=== PATIENT | female | born 1935 | race Caucasian/White ===

== ENCOUNTER 2017-11-09 11:57 | Day surgery (SDC) | payer MEDICARE ==
[~2017-11-09 11:57] MED LIST: ACETAMINOPHEN 1,000 MG/100 ML BTL IV ONE; CEFAZOLIN 2 Gram 2 GM/50 ML BAG IVPB ONE
[2017-11-09] MEDS ORDERED: SEVOFLURANE 250 ML INH ONE (11:58)
[2017-11-09] MEDS ORDERED: KETOROLAC 30 MG/ML VIAL IVP ONE (11:58)
[2017-11-09] MEDS ORDERED: PROPOFOL 10 MG/ML VIAL IV ONE (11:58)
[2017-11-09] MEDS ORDERED: ONDANSETRON HCL IV 4 MG/2 ML VIAL IVP ONE (11:58)
[2017-11-09] MEDS ORDERED: BUPIVACAINE 0.5% W/EPI MPF 30 ML VIAL IVP ONE (11:58)
[2017-11-09] MEDS ORDERED: LIDOCAINE 2% MDV (20MG/ML) 20ML VIAL IV ONE (11:58)
[2017-11-09 12:24] LABS: BASO % 0.4 % (0-6); EOS % 1.8 % (0-6); GRAN % 76.3 % (47-80); HEMATOCRIT 41.5 % (35.0-47.0); HEMOGLOBIN 13.5 gm/dl (11.6-16.0); LYMPH % 13.1 % (16-45); MEAN CORPUSCULAR HEMOGLOBIN 29.6 pg (27-33); MEAN CORPUSCULAR HGB CONC 32.5 g/dl (32-36); MEAN PLATELET VOLUME 10.7 fl (7.4-10.4); MONO % 8.4 % (0-9); PLATELET COUNT 330 K/uL (130-400); RED BLOOD COUNT 4.56 M/uL (3.80-5.40); RED CELL DISTRIBUTION WIDTH 13.7 % (11.5-14.5); WHITE BLOOD COUNT W/O DIFF 6.8 K/uL (4.2-12.2)
[2017-11-09 12:53] LABS: BLOOD UREA NITROGEN 17 mg/dL (8-23); CREATININE 0.7 mg/dL (0.5-0.9); EST GLOMERULAR FILTRATION RATE > 60 mL/min; GLUCOSE,RANDOM 100 mg/dL (74-109)
[2017-11-09] MEDS ORDERED: MORPHINE SULFATE 4 MG/ML VIAL ONE (15:27)
--- NOTE | 2017-11-12 13:48 | Operative Note ---
DATE: 11/09/2017. PREOPERATIVE DIAGNOSIS: INTERNAL DERANGEMENT OF THE LEFT KNEE. POSTOPERATIVE DIAGNOSES: 1. TEAR OF THE ANTERIOR AND LATERAL HORN OF THE LATERAL MENISCUS. 2. DIFFUSE SYNOVITIS OF THE LEFT KNEE. PROCEDURES: 1. Left knee arthroscopy with near-complete lateral meniscectomy. 2. Left knee arthroscopy with complete synovectomy. STAFF SURGEON: Avni Quick M.D. ANESTHESIA: General. PREPARATION: ChloraPrep. INDIVIDUAL CONSIDERATIONS: None. PROCEDURE: The patient was taken to the operating room and placed supine on the operating table. She had successful induction of a general anesthetic. Her left lower extremity was prepped and draped in the usual fashion. The patient had a superolateral inflow cannula placed. The skin had been infiltrated with 0.5% Marcaine with epinephrine prior. A large, clear effusion was drained, and the knee was inflated with normal saline. An inferomedial and an inferolateral portal were made in a similar fashion. The arthroscope was introduced through the inferolateral portal up into the pouch. The patellofemoral joint was basically normal, but she had diffuse synovitis in the pouch and both gutters. This was debrided with a shaver. Her medial compartment structures were well seen and were found to be normal including the medial articular cartilage and medial meniscus. In the lateral compartment, basically she had an unstable anterior and lateral horn tear of the lateral meniscus with multiple large, unstable flaps impinging into the notch. Basically the anterior and lateral horn were debrided out completely with basket forceps and a shaver. The articular cartilage looked good. In the notch, the cruciates were normal. The knee was then irrigated out with saline to remove floating debris. The portals were closed with lexy, and 20 mL of 0.5% Marcaine with epinephrine along with 80 mg of Depo Medrol and 4.0 mg of morphine and were injected into the knee. A sterile Bulkee compressive dressing was applied. The patient tolerated the procedures well. Needle and sponge counts were correct. Estimated blood loss was minimal. She was taken back to recovery in good condition. There were no complications. Job Number: [id number] MTDD
== END 2017-11-09 17:10 | disposition home or self-care (01) ==
LOC: SUR 11:57
PROVIDERS: ATTEND Orthopaedic Surgery
DX: M23.342 Other meniscus derangements, anterior horn of lateral meniscus, left knee (principal); M65.9 Synovitis and tenosynovitis, unspecified; I10 Essential (primary) hypertension; E78.00 Pure hypercholesterolemia, unspecified; K21.9 Gastro-esophageal reflux disease without esophagitis
CPT/HCPCS: 29881; 29876; 01400; 85025; 80048; J1885; J2405; J0690; J2270

== ENCOUNTER 2018-07-18 06:46 | Inpatient (IN) | payer MEDICARE ==
[~2018-07-18 06:46] MED LIST changes: -ACETAMINOPHEN 1,000 MG/100 ML BTL IV ONE; -CEFAZOLIN 2 Gram 2 GM/50 ML BAG IVPB ONE; +CELECOXIB 100 MG CAPSULE PO ONE; +FAMOTIDINE 20MG TABLET PO ONE; +MECLIZINE 25 MG TABLET PO ONE; +METOCLOPRAMIDE 10 MG TABLET PO ONE; +VANCOMYCIN 1GM/200ML PREMIX 1 GM/200 ML PIGGYBACK IVPB ONE
[2018-07-18] MEDS ORDERED: ROPIVACAINE HCL (NAROPIN) /PF 5MG/ML 20ML VIAL IV ONE (06:47)
[2018-07-18] MEDS ORDERED: SEVOFLURANE 250 ML INH ONE (06:47)
[2018-07-18] MEDS ORDERED: SUFENTANIL CITRATE 50 MCG/ML AMPUL IV ONE (06:47)
[2018-07-18] MEDS ORDERED: MIDAZOLAM HCL 2MG/2ML VIAL IV ONE (06:47)
[2018-07-18] MEDS ORDERED: TRANEXAMIC ACID 1,000 MG/10 ML ML IV ONE ×2 (06:47)
[2018-07-18] MEDS ORDERED: DEXAMETHASONE 4 MG/ML 1ML VIAL IVP ONE ×2 (06:47)
[2018-07-18] MEDS ORDERED: KETOROLAC 30 MG/ML VIAL IVP ONE (06:47)
[2018-07-18] MEDS ORDERED: KETAMINE HCL 100MG/1ML VIAL INJ ONE (06:47)
[2018-07-18] MEDS ORDERED: 0.9 % SODIUM CHLORIDE 10 ML VIAL IVP ONE (06:47)
[2018-07-18] MEDS ORDERED: PROPOFOL 10 MG/ML VIAL IV ONE (06:47)
[2018-07-18] MEDS ORDERED: ONDANSETRON HCL IV 4 MG/2 ML VIAL IVP ONE (06:47)
[2018-07-18] MEDS ORDERED: RINGERS SOLUTION,LACTATED 1,000 ML IV ONE ×4 (07:30→10:45)
[2018-07-18 07:55] LABS: ABO GROUP O; ANTIBODY SCREEN NEGATIVE (NEGATIVE); RH TYPE POSITIVE
[2018-07-18] MEDS ORDERED: BUPIVACAINE 0.5% W/EPI MPF 30 ML VIAL SQ ONE (09:50)
[2018-07-18] MEDS: CEFAZOLIN 2 Gram 2 GM/50 ML BAG IVPB SCH ×2 (09:51→17:51)
[2018-07-18] MEDS ORDERED: MAGNESIUM HYDROXIDE 30 ML UDC PO PRN (10:47)
[2018-07-18] MEDS ORDERED: TRAMADOL HCL 50 MG TABLET PO PRN ×2 (10:47)
[2018-07-18] MEDS ORDERED: ACETAMINOPHEN W/ CODEINE 300MG/60MG TABLET PO PRN ×2 (10:47)
[2018-07-18] MEDS ORDERED: HYDROMORPHONE HCL 2 MG/ML VIAL IM PRN (10:47)
[2018-07-18] MEDS ORDERED: NALOXONE 0.4 MG/1 ML VIAL IVP PRN (10:47)
[2018-07-18] MEDS ORDERED: DIPHENHYDRAMINE HCL 25 MG CAPSULE PO PRN (10:47)
[2018-07-18] MEDS ORDERED: KETOROLAC 30 MG/ML VIAL IVP PRN ×2 (10:47)
[2018-07-18] MEDS ORDERED: ZOLPIDEM TARTRATE 5 MG TABLET PO PRN (10:47)
[2018-07-18] MEDS ORDERED: AL HYDROX/MAG HYDROX 30ML UD PO PRN (10:47)
[2018-07-18] MEDS ORDERED: ACETAMINOPHEN 325 MG TAB PO PRN (10:47)
[2018-07-18] MEDS ORDERED: HYDROCODONE/APAP 10/325 TABLET PO PRN (10:47)
[2018-07-18] MEDS ORDERED: HYDROCODONE/APAP 5/325MG TABLET PO PRN ×2 (10:47)
[2018-07-18] MEDS ORDERED: BISACODYL 10 MG SUPP RC PRN (10:47)
[2018-07-18] MEDS: ONDANSETRON HCL IV 4 MG/2 ML VIAL IVP PRN ×2 (12:27→17:49)
[2018-07-18] MEDS: HYDROCODONE/APAP 10/325 TABLET PO PRN ×4 (13:18→23:47)
--- NOTE | 2018-07-18 15:34 | Rehab Evaluation ---
Patient Information - Patient Information Diagnosis: DJD Left Knee Ordered Treatment: PT Evaluate and Treat Status: Initial Evaluation Surgery: Yes (L TKA) Date of Surgery: 07/18/18 Past Medical/Surgical Hx: PAST MEDICAL/SURGICAL HISTORY Surgery to Affected Area? No Recent Surgery? Past Surgical History vLEFT KNEE SCOPE LTHA right knee scope CTR right right RTC back sx lumbar hyst appy PMH - Respiratory Hx Respiratory Disorders No PMH - Cardiovascular Hx Cardiovascular Disorders Yes Hx Hypertension Yes: on meds good control Exercise Tolerance Fair PMH - Neuro Hx Neurological Disorders No Hx Neuropathy DENIES PMH - GI Hx Gastrointestinal Disorders Yes Hx Gastroesophageal Reflux Yes: ON MEDS PMH - Hx Genitourinary Disorders No PMH - Endocrine Hx Endocrine Disorders Yes Hx Thyroid Disease Yes: on meds PMH - Musculoskeletal Hx Musculoskeletal Disorders Yes Hx Arthritis Yes Hx Osteoporosis Yes PMH - Psych Hx Psychiatric Problems No PMH - Hematology/Oncology Hx Hematology/Oncology No Disorders Premorbid Status: Detail (Patient reports that she has a cane, 4-wheeled walker, and 2-wheeled walker available. Patient is retired.) Social History: Detail (Patient lives alone in [address] home with 3 steps to enter bilateral hand rails. Patient reports that her bathroom has a tub/shower combination with grab bars available and hand-held shower. Patient reports that she has a shower bench available for showers. The toilet in the bathroom is elevated but does not have grab bars available. Patient reports that she plans on being discharged to inpatient rehab.) - Time With Patient Total Time Spent With Patient (Min): 30 Treatment Procedures: Detail (Initial evaluation; low complexity) Objective Data - Pain Pain Present: Yes (Patient reports pain to be 5/10. Nursing staff was notified and patient was given pain medication. Therapy returned an hour later for session and patient reported that her pain was about 2/10.) - Mental Status Patient Orientation: Oriented x3 - ROM Not within normal limits (Patient's range of motion of lower extremities was assessed functionally with bed mobility, sit to stand transfers, and ambulation. Patient's left lower extremity is lacking range of motion due to post-surgical status, as expected. All other lower extremity range of motion is within functional limits.) - Strength/Tone Not within normal limits (Patient's strength was assessed functionally with bed mobility, sit to stand transfers, and ambulation. Patient's left lower extremity was not assessed with manual muscle testing but is likely weaker due to post- surgical status. All other lower extremity strength was within functional limits.) - Coordination Appears within normal limits for therapeutic activities - Bed Mobility Independent (Patient completed supine to sitting R EOB transfer independently with supervision assistance x1.) - Transfers Needs Assist (Patient completed sit to stand transfer from R EOB with 2-wheeled walker for support and supervision assistance. During ambulation, patient required a rest break and sat down in a chair with bilateral arm support. Patient required minimal assistance x1 with 2-wheeled walker for support for sit to stand transfer from chair with 2 attempts prior to completion of transfer. Patient then was brought to the restroom and completed sit to stand transfer from commode with bilateral arm support on railing and 2-wheeled walker with supervision assistance x1.) - Gait Detail (Patient ambulated total distance of 66 feet with 2-wheeled walker and CGAx1 for safety. Patient did require rest break at approximately 33 feet due to feeling "wobbly in her brain." Patient's gait pattern was antalgic with decreased heel strike and stride length in left lower extremity.) Therapy Assessment - Therapy Assessment Detail (Patient requires supervision assistance for bed mobility and sit to stand transfers from the edge of the bed. Patient did ambulate a total distance of 66 feet with 2-wheeled walker for support and CGAx1 but required a rest break due to feeling lightheaded. This lightheadedness may be due to post-surgical effects and is expected to subside by next therapy session. Patient would benefit from follow up therapy session to address stair training and post- surgical exercises.) Problem List - Problem List Physical Therapy Problem List: Detail (1. Decreased strength in left lower extremity due to post-surgical status 2. Decreased range of motion in left lower extremity due to post-surgical status. 3. Altered gait pattern due to compensations over time.) Goals - Goals Physical Therapy Goals: 1. Patient will ascend/descend 3 stairs with one railing and folded 2-wheeled walker for bilateral hand support with CGAx1 prior to discharge. 2. Patient will be independent with home exercises. Prognosis - Prognosis Good (With follow up session addressing additional needs/goals, patient is expected to continue progress in transition home.) Plan - Plan Physical Therapy Plan: Patient will receive 1-2 visits of physical therapy to address stair training and home exercise program.
--- NOTE | 2018-07-18 15:43 | Rehab Evaluation ---
Patient Information - Patient Information Diagnosis: DJD Left Knee Ordered Treatment: OT Evaluate and Treat Status: Initial Evaluation Surgery: Yes (L TKA) Date of Surgery: 07/18/18 Past Medical/Surgical Hx: PAST MEDICAL/SURGICAL HISTORY Surgery to Affected Area? No Recent Surgery? Past Surgical History vLEFT KNEE SCOPE LTHA right knee scope CTR right right RTC back sx lumbar hyst appy PMH - Respiratory Hx Respiratory Disorders No PMH - Cardiovascular Hx Cardiovascular Disorders Yes Hx Hypertension Yes: on meds good control Exercise Tolerance Fair PMH - Neuro Hx Neurological Disorders No Hx Neuropathy DENIES PMH - GI Hx Gastrointestinal Disorders Yes Hx Gastroesophageal Reflux Yes: ON MEDS PMH - Hx Genitourinary Disorders No PMH - Endocrine Hx Endocrine Disorders Yes Hx Thyroid Disease Yes: on meds PMH - Musculoskeletal Hx Musculoskeletal Disorders Yes Hx Arthritis Yes Hx Osteoporosis Yes PMH - Psych Hx Psychiatric Problems No PMH - Hematology/Oncology Hx Hematology/Oncology No Disorders Premorbid Status: Detail (Prior to Sx, Pt was independent with all ADLs and functional TFs, using a cane recently. She lives alone in a one level home with 3 FILIBERTO and wide bilateral HRs. The bathroom is equipped with a tub/shower, shower stool, GBs, and a hand-held shower, along with a raised toilet seat without GBs. Pt hopes to go to rehab at [facility].) Precautions: [place], Fall, Other (FWB LLE) - Time With Patient Total Time Spent With Patient (Min): 28 (1 eval) Treatment Procedures: Detail (OT eval: low complexity) Subjective Information - Subjective Information Per Patient (Ok to see per DANIA Vivar. Pt agreeable to OT eval.) Objective Data - Pain Pain Present: No Pain Scale Used: Numeric (1 - 10) (0/10) - Mental Status Patient Orientation: Oriented x3 - Visual Perception Appears within normal limits for therapeutic activities - ROM Within normal limits, Not within normal limits (L UE WNL, R UE WNL except shoulder - previous rotator cuff Sx and "locks" at ~45* full PROM) - Strength/Tone Within normal limits, Not within normal limits (decreased strength R shoulder d/t 10 yr old injury) - Coordination Appears within normal limits for therapeutic activities - Bed Mobility Independent (not assessed - Pt in chair upon arrival) - Transfers Independent - Balance Balance Sitting: Good Balance Standing: Good (goold balance during standing pant mgmt) - Sensation Intact - Gait Detail (Fxl mobility within bedroom with FWW and supervision progressing to MOD I - initial verbal instruction for safe FWW use and hand placement during sit- stands, Pt demos good follow through and safety awareness end of session.) - ADL's/IADL's Detail (Pt washes up standing sink-side - face, upper and lower body with good balance. OT educates Pt on adaptive technique for LB dressing - Pt demos good follow through and reports independence with sock aide for L sock at home with her own device. OT educates Pt on kitchen and bathroom safety, Pt verbalizes understanding.) Therapy Assessment - Therapy Assessment Detail (Pt demos good independence and safety with ADLs and functional TFs. From OT and Pt perspective Pt appears safe for home DC pending PT eval - Pt lives in 1-story home with 3 FILIBERTO.) Patient Education - Patient Education Teaching Topic: Equipment Use, Other (adaptive technique for dressing, TFs, bathroom/kitchen safety.) Problem List - Problem List Occupational Therapy Problem List: Detail (No further IP OT needs identified.) Goals - Goals Occupational Therapy Goals: No further IP OT needs/goals identified. Prognosis - Prognosis Good Plan - Plan Occupational Therapy Plan: No further IP OT needs identified. DC OT services. Pt appears safe for home DC, Pt agreeable, see PT notes for further recs. Thank you for this referral.
[2018-07-18] MEDS: POTASSIUM CHLORIDE/D5-0.9%NACL 20 MEQ/1,000 ML BAG IV SCH ×2 (17:53→19:59)
[2018-07-18] MEDS: RIVAROXABAN 10 MG TABLET PO SCH (19:58)
[2018-07-18] MEDS: DOCUSATE SODIUM 100 MG CAPSULE PO SCH (21:30)
[2018-07-18] MEDS: ATENOLOL 50 MG TABLET PO SCH (21:30)
[2018-07-18] MEDS: AMLODIPINE BESYLATE 5MG TAB PO SCH (21:30)
[2018-07-18] MEDS: SIMVASTATIN 20 MG TABLET PO SCH (21:30)
[2018-07-19] MEDS: CEFAZOLIN 2 Gram 2 GM/50 ML BAG IVPB SCH ×4 (00:29→09:05)
[2018-07-19] MEDS: POTASSIUM CHLORIDE/D5-0.9%NACL 20 MEQ/1,000 ML BAG IV SCH ×3 (04:56→19:22)
[2018-07-19] MEDS: HYDROCODONE/APAP 10/325 TABLET PO PRN ×3 (05:02→17:51)
[2018-07-19] MEDS: PANTOPRAZOLE SODIUM 40 MG TABLET PO SCH (06:01)
[2018-07-19] MEDS: LEVOTHYROXINE SODIUM 50 MCG TABLET PO SCH (06:02)
--- NOTE | 2018-07-19 06:10 | Operative Note ---
DATE OF SURGERY: 07/18/2018 PREOPERATIVE DIAGNOSIS: End-stage arthrosis of the left knee. POSTOPERATIVE DIAGNOSIS: End-stage arthrosis of the left knee. OPERATION: Cemented left total knee arthroplasty using [employer] Sarai II components with a size 4 cobalt chrome femur, a size 4 stemmed tibia baseplate, a 9 mm lipped tibial insert, and a 35 mm all plastic patella. STAFF SURGEON: Avni Quick MD ANESTHESIA: Spinal. PREPARATION: Chloraprep. INDIVIDUAL CONSIDERATIONS: None. PROCEDURE: The patient was taken to the operating room, placed supine on the operating room table. He had a successful induction of a spinal anesthetic. The left lower extremity was prepped and draped in the usual fashion. The patient had a midline approach to the knee. The limb was elevated and tourniquet was inflated to 250 mmHg prior. Sharp dissection carried down through skin and subcutaneous tissue. Small veins were coagulated with a Bovie. A medial arthrotomy was performed. The patella was everted and the knee was flexed. The patient had exposed bone in both medial and lateral compartments. Fat pad was resected, ACL was sacrificed, and provisional anterior meniscectomies were performed. The capsule was released from the medial proximal tibia. The initial femoral charter pilot hole was then made freehand. The intramedullary femoral cutting jig was placed. It was cut in 7.0 degrees of valgus and adjusted for rotation and secured with pins for a 10 mm resection. The initial transverse cut was then made. The skin guide was placed in the anterior and posterior charter pilot holes. It was found that a size 4 would be appropriate. The anterior and posterior cuts followed by chamfer cuts were made. Osteophytes removed, and a size 4 trial was placed and found to fit well. The tibia was brought forward, and the remainder of the meniscal remnants removed with a Bovie. The extraarticular tibial cutting jig was placed. It was cut in neutral with a 3-degree AP slope. Care was taken to adjust for rotation and flexion using the extraarticular alignment guide and bony landmarks. It was found that a size 4 would be appropriate. It was adjusted for rotation and secured with pins. With a 9 mm trial and femoral trial, there was excellent motion and stability, ligamentous balance, rotation alignment were thought to be normal. The femoral charter pilot holes were impacted and the femoral tri-flange keel stamp was impacted, and these trial components were removed. The patient had a relatively thick patella, and roughly 9 mm of bone was removed. I could easily fit a 35 patella, and the 3 charter pilot holes were drilled. Thorough irrigation with pulsatile Betadine and saline. I then took the tourniquet down briefly to get bleeders posteriorly and then placed it back up again. Again thorough irrigation to remove any visual or palpable debris. Bony surfaces were then dried. A size 4 stemmed tibia baseplate was cemented into place followed by impaction of the 9 mm lipped tibial insert followed by cementing in the size 4 cobalt chrome femur followed by cementing in the 35 mm all plastic patella. The implant surfaces were compressed, excess cement was removed. After the cement had set, there was excellent motion and stability, ligamentous balance, rotation alignment, and patellofemoral tracking were normal. No lateral release was required. Again after irrigation I infiltrated the skin and subcutaneous tissue with 30 mL of 0.5% Marcaine with epinephrine. Tourniquet was let down. Hemostasis was obtained with a Bovie. The capsule was then closed with a running #2 quill, subcu was closed in layers with running 0 quill, skin was closed with lexy. The patient did receive 1 g of tranexamic acid preoperatively IV. I mixed 1 g of tranexamic acid with 30 mL of saline and it was injected into the knee through a sterile 18-gauge needle, and a sterile bulky compressive dressing was applied. The patient tolerated the procedure well. Needle and sponge counts were correct. Estimated blood loss was minimal, and she was taken back to recovery in good condition. There were no complications. ROBIN
[2018-07-19 06:56] LABS: HEMATOCRIT 30.6 % (35.0-47.0); HEMOGLOBIN 9.8 gm/dl (11.6-16.0)
[2018-07-19 07:07] LABS: BLOOD UREA NITROGEN 14 mg/dL (8-23); CREATININE 0.7 mg/dL (0.5-0.9); EST GLOMERULAR FILTRATION RATE > 60 mL/min; GLUCOSE,RANDOM 131 mg/dL (74-109)
[2018-07-19] MEDS: DOCUSATE SODIUM 100 MG CAPSULE PO SCH ×2 (09:05→22:40)
[2018-07-19] MEDS: ATENOLOL 50 MG TABLET PO SCH ×2 (09:06→22:40)
[2018-07-19] MEDS: FERROUS SULFATE 325 MG TAB PO SCH (09:06)
[2018-07-19] MEDS: AMLODIPINE BESYLATE 5MG TAB PO SCH ×2 (09:06→22:40)
--- NOTE | 2018-07-19 10:49 | Physical Therapy Tx Note ---
Physical Therapy Tx Note - Treatment Note Tolerated: Good Total Time Spent With Patient: 30 Physical Therapy Tx Note: Detail (Patient states left knee sore today. Patient was reclined in bed upon SENIOR INTEGRATION DEVELOPER arrival. Patient transferred supine to sit independently. Patient transferred sit to and from stand CGA x1. Patient ambulated 130 feet with wheeled walker SBA x1. Patient descended and ascended 3 steps CGA x1 with using stairwell railing and walker. Patient transferred sit to supine independently. Patient performed the following exercises x10 reps each: ankle pumps, glut squeezes, quad sets, SLR, heel slides, and hamstring sets. Patient tolerated treatment well. Patient displays good understanding of HEP and stair climbing. Patient was left reclined in bed with call light within reach. Patient discharged from inpatient PT at this time as all goals are met.) Physical Therapy Problem List: Detail (1. Decreased strength in left lower extremity due to post-surgical status 2. Decreased range of motion in left lower extremity due to post-surgical status. 3. Altered gait pattern due to compensations over time.) Physical Therapy Goals: 1. Patient will ascend/descend 3 stairs with one railing and folded 2-wheeled walker for bilateral hand support with CGAx1 prior to discharge. 2. Patient will be independent with home exercises. Prognosis: Good Physical Therapy Plan: Patient discharged from inpatient PT at this time as all goals are met.
--- NOTE | 2018-07-19 15:29 | RADIOLOGY REPORT ---
EXAM: Portable Chest HISTORY: Total knee arthroplasty one day ago. Rehab placement. TECHNIQUE: Two upright portable views of the chest are obtained. COMPARISON: None. FINDINGS: Heart is at the upper limits of normal in size. No pulmonary venous hypertension is seen. The aortic knob is arthrosclerotic. The lung volumes are relatively low. Minor linear scaring versus atelectasis is present in the lateral left lung base. The lungs and plural spaces are otherwise clear. There are degenerative changes scattered within the visualized spine. Moderate thoracolumbar scoliosis is identified with dextroconvex curvature centered at the mid to lower thoracic levels and levorotatory curvature centered at the mid lumbar levels. IMPRESSION: 1. Low lung volumes mildly limits evaluation. 2. Minor linear scaring versus atelectasis within the left lung base. JOB NUMBER: [id number] MTDD
[2018-07-19] MEDS: RIVAROXABAN 10 MG TABLET PO SCH (17:02)
[2018-07-19] MEDS: SIMVASTATIN 20 MG TABLET PO SCH (22:40)
[2018-07-20] MEDS: HYDROCODONE/APAP 10/325 TABLET PO PRN (04:59)
[2018-07-20] MEDS: PANTOPRAZOLE SODIUM 40 MG TABLET PO SCH (06:28)
[2018-07-20] MEDS: LEVOTHYROXINE SODIUM 50 MCG TABLET PO SCH (06:28)
[2018-07-20 07:15] LABS: HEMATOCRIT 29.7 % (35.0-47.0); HEMOGLOBIN 9.2 gm/dl (11.6-16.0)
[2018-07-20 07:35] LABS: BLOOD UREA NITROGEN 17 mg/dL (8-23); CREATININE 0.6 mg/dL (0.5-0.9); EST GLOMERULAR FILTRATION RATE > 60 mL/min; GLUCOSE,RANDOM 95 mg/dL (74-109)
[2018-07-20] MEDS: DOCUSATE SODIUM 100 MG CAPSULE PO SCH (09:06)
[2018-07-20] MEDS: FERROUS SULFATE 325 MG TAB PO SCH (09:06)
[2018-07-20] MEDS: AMLODIPINE BESYLATE 5MG TAB PO SCH (09:07)
[2018-07-20] MEDS: ATENOLOL 50 MG TABLET PO SCH (09:07)
--- NOTE | 2018-07-20 10:17 | Discharge Summary ---
DATE OF ADMISSION: 07/17/2018 DATE OF DISCHARGE: 07/20/2018 DATE OF SURGERY: 07/17/2018 HISTORY: Jessica is a delightful 82-year-old female who presents with end stage arthrosis of her left knee. She was admitted after left total knee arthroplasty. Postoperatively she did well. Her hospital course is unremarkable. Discharge hemoglobin is 9.8 and required transfusion. The plan is to transfer her to a rehab facility. She will be given [place] 5/325 one to two p.o. q four to six hours prn pain. She should continue with her Xarelto for DVT prophylaxis for four or five days postoperatively which means her last dose of Xarelto should be Tuesday morning. Then she should take a regular aspirin daily for thirty days. Her sutures should be removed two weeks postoperatively which would be 07/31/2018. She should follow-up in my office in four weeks. FINAL DIAGNOSES/PRIMARY DIAGNOSES: 1. END STAGE ARTHROSIS LEFT KNEE. 2. OPERATIVE BLOOD LOSS ANEMIA. OPERATIVE PROCEDURES: Cemented left total knee arthroplasty. JOB NUMBER: [id number] [facility]
== END 2018-07-20 10:20 | disposition home or self-care (01) | DRG 470 ==
LOC: SUR 06:46 → MEDSURG 11:36 → SUR 11:36 → MEDSURG 07-20 10:20 → SUR 07-20 10:20
PROVIDERS: ADMIT Orthopaedic Surgery; ATTEND Orthopaedic Surgery
PROC: 0SRD069 Replacement of Left Knee Joint with Oxidized Zirconium on Polyethylene Synthetic Substitute, Cemented, Open Approach (ICD-10-PCS; principal; 2018-07-18 09:00)
DX: M17.12 Unilateral primary osteoarthritis, left knee (principal); I10 Essential (primary) hypertension; E78.00 Pure hypercholesterolemia, unspecified; K21.9 Gastro-esophageal reflux disease without esophagitis; E03.9 Hypothyroidism, unspecified
CPT/HCPCS: 71045; 76942; 80048; 85014; 85018; 86850; 86900; 86901; 97110; C1776; J1885; J2405; J3370; J3480; J3490; J7120